=== PATIENT | male | born 1940 | race Caucasian/White ===

== ENCOUNTER 2023-04-02 08:02 | Outpatient (CLI) | payer MEDICARE, SELFPAY ==
[2023-04-02] VITALS (7 sets, daily range): BP systolic 115–140; BP diastolic 60–76; PULSE 69–105; RESP 12–22; TEMP 36.4; O2SAT 97–98
--- NOTE | 2023-04-02 08:45 | DI.RAD.S_ITS ---
PROCEDURE: PAIN L/S FACET INJ/BLK 1ST GARRET INDICATIONS: FACET ARTHROPATHY COMPARISON: None. FINDINGS: Fluoroscopic spot filming was performed to verify placement of spinal needles at the bilateral L4, L5 and S1 level(s), as labeled on the films. Appropriate location(s) of the needle tip(s) was confirmed by injection of iodinated contrast. IMPRESSION: Intra procedural examination demonstrating appropriate positions of the needles. Dictated by: Tra Lara M.D. on 04/02/2023 at 10:42 Approved by: Tra Lara M.D. on 04/02/2023 at 10:42
[2023-04-02] MEDS: MIDAZOLAM 2 MG/2 ML VIAL IV (09:22)
[2023-04-02] MEDS: iopamidoL 15 ML VIAL 3 ML INJ (09:25)
[2023-04-02] MEDS: LIDOCAINE 1% 20 ML 5 ML INJ (09:25)
[2023-04-02] MEDS: BUPIVACAINE 0.5% (PF) 10 ML VIAL 5 ML INJ (09:25)
--- NOTE | 2023-04-02 09:43 | PM.PROC.IR.1 ---
Date/Time/Diagnoses Date of procedure: 04/02/23 Time of procedure: 09:43 Pre-procedure diagnosis: 1. FACET ARTHROPATHY Post-procedure diagnosis: same Procedure Notes Procedure: 1. BILATERAL- L4, L5 and S1 DIAGNOSTIC MB BLOCKS with LA Anesthetic Indications: Wilber is referred by Dr. Szymanski for treatment of Bilateral Axial LBP. Physician: Jeronimo Hayes Total Fluoroscopy time (seconds): 14 Total sedation minutes: 17 Complications: none Procedure in detail & Post-procedure care: DESCRIPTION OF PROCEDURE Fluoroscopically guided, contrast-controlled bilateral L4, L5 and S1 medial branch blocks with 0.5cc of 0.5% Marcaine. Following review of allergy and review of potential side effects and complications, including, but not necessarily limited to, infection, allergic reaction, local tissue breakdown, nerve injury, paralysis, stroke and possible , the patient indicated that the patient understood and agreed to proceed. An informed consent document was signed by the patient, witnessed by a nurse, and placed in the patient's chart. After review of previous anaesthesic history and IV conscious sedation the patient was deemed safe to proceed with today's procedure with IV conscious sedation as ASA class II designation. Safety time-out was performed to confirm patient ID, procedure to be performed and site of procedure. IV sedation was accomplished with a combination of 2mg of Versed was administered by the RN after DO order, titrated to patient comfort during the course of the procedure while the patient remained responsive to all verbal commands In the prone position, following sterile prep and drape of the lumbar region, the right L4, L5 and S1 anatomical location of the medial branch of the dorsal ramus was identified fluoroscopically. Subsequently an anesthetic skin wheal using 1% lidocaine solution was initiated at each of the anatomical spots. Subsequently then a 22-gauge 3.5-inch spinal needle was atraumatically introduced and advanced under fluoroscopic guidance at each of the corresponding sites at the right L4, L5 and S1 MB. After negative aspiration, 0.2cc of Isovue 200 was injected, confirming placement without vascular or intrathecal uptake. Subsequently then 0.5cc of 0.5% Marcaine solution was injected at each of the corresponding sites at the right L4, L5 and S1 medial branch locations. The identical procedure was replicated on the left. The patient tolerated the procedure well without signs or symptoms of complications prior to transfer to the recovery area continued monitoring without incident. Post-procedure, the patient was monitored initiating provocative activities to measure the amount of relief from block of the facetogenic pain. The patient reported a VAS of 7 prior to the procedure and a post-procedure VAS of 1. It has been a pleasure to assist in the diagnostic and therapeutic care of your patient. POST OP INSTRUCTIONS The patient was provided with a Pain Log to complete over the next several hours and subsequent days prior to the patient's follow up with the ordering physician. If the patient has congressional assistant relief to the solution applied, then they may be a candidate for medial branch rhizotomy. The patient is aware, was provided, once again, with a Pain Log and will follow up with the referring physician for review and clinical correlation
== END 2023-04-02 09:57 | disposition home or self-care (01) ==
PROVIDERS: PCP Family Medicine; Referring Provider Physical Medicine & Rehabilitation; Visit Provider Physical Medicine & Rehabilitation
DX: M47.816 Spondylosis without myelopathy or radiculopathy, lumbar region (principal); M47.817 Spondylosis without myelopathy or radiculopathy, lumbosacral region
CPT/HCPCS: 64493; 64494; 99152; J2250

== ENCOUNTER 2023-06-02 09:34 | Outpatient (CLI) | payer MEDICARE, SELFPAY ==
[2023-06-02] VITALS (8 sets, daily range): BP systolic 133–166; BP diastolic 62–93; PULSE 91–126; RESP 16–19; TEMP 36.6; O2SAT 96–100
--- NOTE | 2023-06-02 10:15 | DI.RAD.S_ITS ---
PROCEDURE: PAIN L/S FACET INJ/BLK 1ST GARRET INDICATIONS: FACET ARTHOPATHY COMPARISON: [facility], , PAIN L/S FACET INJ/BLK 1ST GARRET, 04/02/2023, 10:26. FINDINGS: Fluoroscopic spot filming was performed to verify placement of spinal needles at the bilateral L4-5 and S1 level(s), as labeled on the films. Appropriate location(s) of the needle tip(s) was confirmed by injection of iodinated contrast. IMPRESSION: Bilateral L4-5 and S1 fluoroscopically guided injections. Dictated by: Tiffani Vizcaino M.D. on 06/02/2023 at 12:57 Approved by: Tiffani Vizcaino M.D. on 06/02/2023 at 12:57
--- NOTE | 2023-06-02 10:38 | PC.NURSE ---
Patient reports that 05/21 he has a right inguinal hernia repair done in [place]. Reports he got the ok from his surgeon to have injection. Denies any s/sx of infection.
[2023-06-02] MEDS: MIDAZOLAM 2 MG/2 ML VIAL IV (10:49)
[2023-06-02] MEDS: iopamidoL 15 ML VIAL 3 ML INJ (10:52)
[2023-06-02] MEDS: LIDOCAINE 1% 20 ML 5 ML INJ (10:53)
[2023-06-02] MEDS: LIDOCAINE 2% INJ SDV 5ML 10 ML INJ (10:54)
--- NOTE | 2023-06-02 11:08 | PM.PROC.IR.1 ---
Date/Time/Diagnoses Date of procedure: 06/02/23 Time of procedure: 11:08 Pre-procedure diagnosis: 1. FACET ARTHROPATHY Post-procedure diagnosis: same Procedure Notes Procedure: 1. BILATERAL- L4, L5 and S1 DIAGNOSTIC MB BLOCKS with SA Anesthetic Indications: Wilber is referred by Dr. Szymanski for treatment of Bilateral Axial LBP. Physician: Jeronimo Hayes Total Fluoroscopy time (seconds): 12 Total sedation minutes: 13 Complications: none Procedure in detail & Post-procedure care: DESCRIPTION OF PROCEDURE Fluoroscopically guided, contrast-controlled bilateral L4, L5 and S1 medial branch blocks with 0.5cc of 2% Lidocaine. Following review of allergy and review of potential side effects and complications, including, but not necessarily limited to, infection, allergic reaction, local tissue breakdown, nerve injury, paralysis, stroke and possible , the patient indicated that the patient understood and agreed to proceed. An informed consent document was signed by the patient, witnessed by a nurse, and placed in the patient's chart. After review of previous anaesthesic history and IV conscious sedation the patient was deemed safe to proceed with today's procedure with IV conscious sedation as ASA class II designation. Safety time-out was performed to confirm patient ID, procedure to be performed and site of procedure. IV sedation was accomplished with a combination of 2mg of Versed was administered by the RN after DO order, titrated to patient comfort during the course of the procedure while the patient remained responsive to all verbal commands In the prone position, following sterile prep and drape of the lumbar region, the right L4, L5 and S1 anatomical location of the medial branch of the dorsal ramus was identified fluoroscopically. Subsequently an anesthetic skin wheal using 1% lidocaine solution was initiated at each of the anatomical spots. Subsequently then a 22-gauge 3.5-inch spinal needle was atraumatically introduced and advanced under fluoroscopic guidance at each of the corresponding sites at the right L4, L5 and S1 MB. After negative aspiration, 0.2cc of Isovue 200 was injected, confirming placement without vascular or intrathecal uptake. Subsequently then 0.5cc of 2% Lidocaine solution was injected at each of the corresponding sites at the right L4, L5 and S1 medial branch locations. The identical procedure was replicated on the left. The patient tolerated the procedure well without signs or symptoms of complications prior to transfer to the recovery area continued monitoring without incident. Post-procedure, the patient was monitored initiating provocative activities to measure the amount of relief from block of the facetogenic pain. The patient reported a VAS of 7 prior to the procedure and a post-procedure VAS of 1. It has been a pleasure to assist in the diagnostic and therapeutic care of your patient. POST OP INSTRUCTIONS The patient was provided with a Pain Log to complete over the next several hours and subsequent days prior to the patient's follow up with the ordering physician. If the patient has hydraulic press tender relief to the solution applied, then they may be a candidate for medial branch rhizotomy. The patient is aware, was provided, once again, with a Pain Log and will follow up with the referring physician for review and clinical correlation
--- NOTE | 2023-06-02 11:40 | PC.NURSE ---
Patient has hx of afib, reports he did not take his Diltiazem 300mg ER this morning last dose was 06/01/23 in AM. Heart rate 120-130's afib, non sustaining in 140's. Patient denies any heart palpations, SOB, chest discomfort or h/a. Patient and son instructed that he needs to go home and take his morning dose of diltiazem. He was also instructed that he does not need to hold this medication for his procedure and that he needs to take it as directed. Patient instructed if he starts to have any chest palpations, chest pain, SOB and h/a to be seen in ER. Dr Hayes aware of heart rate and ok to d/c home. At d/c patient was steady on feet, denies any dizziness or lightheaded with ambulation.
== END 2023-06-02 11:30 | disposition home or self-care (01) ==
LOC: RAD 09:35
PROVIDERS: PCP Family Medicine; Referring Provider Physical Medicine & Rehabilitation; Visit Provider Physical Medicine & Rehabilitation
DX: M47.816 Spondylosis without myelopathy or radiculopathy, lumbar region (principal); M47.817 Spondylosis without myelopathy or radiculopathy, lumbosacral region
CPT/HCPCS: 64493; 64494; 99152; J2250

== ENCOUNTER 2023-08-04 07:09 | Outpatient (CLI) | payer MEDICARE, SELFPAY ==
[2023-08-04] VITALS (15 sets, daily range): BP systolic 99–146; BP diastolic 53–89; PULSE 88–114; RESP 12–25; TEMP 36.9; O2SAT 96–99
--- NOTE | 2023-08-04 08:00 | DI.RAD.S_ITS ---
PROCEDURE: PAIN L/S MED/LAT N RFA BILAT INDICATIONS: Bilateral L4, L5 and S1 medial branch RFA COMPARISON: None. FINDINGS: Fluoroscopic spot filming was performed to verify placement of spinal needles at the bilateral L4, L5 and S1 level(s), as labeled on the films. Appropriate location(s) of the needle tip(s) was confirmed by injection of iodinated contrast. IMPRESSION: Fluoroscopic guidance utilized for a bilateral medial branch RFA. Dictated by: Cedric Giang M.D. on 08/04/2023 at 10:51 Approved by: Cedric Giang M.D. on 08/04/2023 at 10:51
[2023-08-04] MEDS: MIDAZOLAM 2 MG/2 ML VIAL 1 MG IV ×2 (08:15→08:39)
[2023-08-04] MEDS: BUPIVACAINE 0.5% (PF) 10 ML VIAL 5 ML INJ (08:23)
[2023-08-04] MEDS: LIDOCAINE 1% 20 ML 5 ML INJ (08:23)
[2023-08-04] MEDS: MIDAZOLAM 5 MG/ML VIAL 1 MG IV (08:25)
--- NOTE | 2023-08-04 09:04 | P.PCN_ITS ---
Date/Time/Diagnoses Date of procedure: 08/04/23 Time of procedure: 09:04 Pre-procedure diagnosis: 1. RECALCITRANT FACET ARTHROPATHY Post-procedure diagnosis: same Procedure Notes Procedure: 1. BILATERAL L4 AND L5 MEDIAL BRANCH RADIOFREQUENCY NEUROTOMY AND S1 DORSAL RAMUS BRANCH RADIOFREQUENCY NEUROTOMY Indications: Wilber is referred by Dr. Szymanski for treatment of facet arthropathy. Physician: Jeronimo Hayes Total Fluoroscopy time (seconds): 19 Total sedation minutes: 39 Complications: none Procedure in detail & Post-procedure care: DESCRIPTION OF PROCEDURE Bilateral L4 and L5 medial branch radiofrequency neurotomy and bilateral S1 dorsal ramus radiofrequency neurotomy under fluoroscopy with conscious sedation. The patient is well known to this clinic having undergone previous facet injections with good but temporary relief. The patient has experienced appropriate, concordant relief with previous facet and median branch blocks but the patient's pain has been recalcitrant to further conservative measures. Therefore, based upon the patient's relief and persistent symptoms, the patient is considered an appropriate candidate for facet rhizotomy. All of the patient's questions regarding the risks versus benefits of the procedure, including, but not limited to, bleeding, infection, temporary as well as lasting nerve injury, paralysis, stroke, and , as well treatment alternatives were answered to satisfaction. After obtaining informed consent, denial of pertinent drug allergies, as well as being made aware of the potential risks of bleeding, infection, spinal cord trauma, paralysis, temporary and permanent nerve damage, seizure, stroke, and possible , the patient was brought to the fluoroscopy suite and positioned prone on the fluoroscopy table. The lumbar region was prepped in usual sterile fashion and covered with a fenestrated drape in the usual sterile fashion. Appropriate monitors applied including pulse oximeter, pulse, and blood pressure for regular monitoring throughout the procedure. After review of previous anaesthesic history and IV conscious sedation the patient was deemed safe to proceed with today's procedure with IV conscious sedation as ASA class II designation. Safety time-out was performed to confirm patient ID, procedure to be performed and site of procedure. IV sedation was accomplished with a combination of 3mg of Versed administered by the RN after DO order, titrated to patient comfort during the course of the procedure while the patient remained responsive to all verbal commands. After local infiltration using 1% lidocaine, under fluoroscopic guidance, a 10- cm RF insulated needle with a 10-mm active tip was positioned parallel to the junction of the right sacral ala and the superior articulating process where the S1 dorsal ramus resides. Needle placement was confirmed with motor stimulation of .5v on the right which produced local stimulation without radicular component. The stimulation was then increased to 2v with, once again, only local multifidus stimulation without radicular component. The needle was then removed and the identical procedure was performed along the length of the right L5 medial branch with motor stimulation at .7v on the right. The identical procedure was once again performed along the length of the right L4 medial branch with motor stimulation of .5v on the right. The medial branches were then anesthetised with 0.5% Marcaine. This was then followed by two discreet lesions performed at 80 degrees Celsius for 90 seconds each. The identical procedure was repeated on the left. The patient tolerated the procedure well without signs or symptoms of complications prior to transfer to the recovery area continued monitoring without incident. The patient was then transferred to the recovery area where they were observed for an appropriate period of time after the injection. The patient reported a VAS score of 9 prior to the procedure and a post-procedure VAS of 0. POST OP INSTRUCTIONS The patient was provided a Pain Log to continue to record the patient's response to the target-specific procedure prior to the patient's follow-up visit with the referring physician. Additionally, specific post-injection care instructions and a contact number to our office were provided if concerns arise regarding possible complications associated with the procedure are suspected.
== END 2023-08-04 09:40 | disposition home or self-care (01) ==
LOC: RAD 07:10
PROVIDERS: PCP Family Medicine; Referring Provider Physical Medicine & Rehabilitation; Visit Provider Physical Medicine & Rehabilitation
DX: M47.816 Spondylosis without myelopathy or radiculopathy, lumbar region (principal); M47.817 Spondylosis without myelopathy or radiculopathy, lumbosacral region
CPT/HCPCS: 64635; 64636; 99152; 99153; J2250

== ENCOUNTER → 2024-03-23 12:52 | Outpatient (CLI) | payer MEDICARE, SELFPAY ==
--- NOTE | 2024-03-23 12:55 | DI.RAD.S_ITS ---
PROCEDURE: XR LUMBAR SPINE MIN 4V INDICATIONS: BACK PAIN TECHNIQUE: 5 views of the lumbar spine were acquired, including bilateral oblique views. COMPARISON: [facility], RG, XR L-SPINE 2-3V, 12/18/2022, 10:08. FINDINGS: Bones: Generalized decreased osseous mineralization noted. Since the prior exam, L2 compression fracture has been treated with vertebroplasty. Vertebroplasty at T12 and L1 remains unchanged. Prior L3 and L4 compression fracture is also stable. Diffuse disc space narrowing hypertrophic facet joints. No new fracture. Soft tissues: Overlying bowel gas pattern is normal. No suspicious soft tissue calcifications. Atherosclerotic calcification in the abdominal aorta noted without evidence of aneurysm. Oblique images: No pars defects. IMPRESSION: Osteopenia without new compression fracture. Stable degenerative disc disease and arthropathy. Stable multilevel vertebroplasty and compression fractures Approved by: Adan Molina M.D. on 03/23/2024 at 13:41
== END ==
PROVIDERS: PCP Family Medicine; Referring Provider Physical Medicine & Rehabilitation; Visit Provider Physical Medicine & Rehabilitation
DX: M48.062 Spinal stenosis, lumbar region with neurogenic claudication (principal); M47.816 Spondylosis without myelopathy or radiculopathy, lumbar region; M51.369 Other intervertebral disc degeneration, lumbar region without mention of lumbar back pain or lower extremity pain; M81.0 Age-related osteoporosis without current pathological fracture; I70.0 Atherosclerosis of aorta; S32.030S Wedge compression fracture of third lumbar vertebra, sequela; S32.020S Wedge compression fracture of second lumbar vertebra, sequela; S32.010S Wedge compression fracture of first lumbar vertebra, sequela; S22.080S Wedge compression fracture of T11-T12 vertebra, sequela; Z79.01 Long term (current) use of anticoagulants; Z86.79 Personal history of other diseases of the circulatory system
CPT/HCPCS: 72110; 99214

== ENCOUNTER 2024-04-14 14:20 | Outpatient (CLI) | payer MEDICARE, SELFPAY ==
[2024-04-14] VITALS (10 sets, daily range): BP systolic 118–151; BP diastolic 64–90; PULSE 10–98; RESP 14–20; TEMP 36.7; O2SAT 96–100
--- NOTE | 2024-04-14 14:46 | DI.RAD.S_ITS ---
PROCEDURE: PAIN L/S TRANSFORAM INJECT GARRET COMPARISON: [facility], CR, XR LUMBAR SPINE MIN 4V, 03/23/2024, 13:08. INDICATIONS: Bilateral L3/4 TFESI FINDINGS/IMPRESSION: Fluoroscopic spot filming was performed to verify placement of spinal needles at the bilateral L3-4 levels, as labeled on the films. Appropriate locations of the needle tips were confirmed by injection of iodinated contrast. Vertebroplasty changes are noted. Approved by: Vahe Dooley M.D. on 04/15/2024 at 15:57
[2024-04-14] MEDS: MIDAZOLAM 2 MG/2 ML VIAL IV (15:34)
[2024-04-14] MEDS: BETAMETHASONE 30 MG/5 ML MDV 12 MG INJ (15:38)
[2024-04-14] MEDS: iopamidoL 15 ML VIAL 3 ML INJ (15:38)
[2024-04-14] MEDS: BUPIVACAINE 0.25% (PF) VIAL 2 ML INJ (15:38)
[2024-04-14] MEDS: DEXAMETHASONE 10 MG/ML VIAL 20 MG INJ (15:39)
[2024-04-14] MEDS: BETAMETHASONE 30 MG/5 ML MDV 6 MG INJ (15:39)
--- NOTE | 2024-04-14 16:01 | PM.PROC.IR.1 ---
Date/Time/Diagnoses Date of procedure: 04/14/24 Time of procedure: 16:01 Pre-procedure diagnosis: 1. FORAMINAL STENOSIS WITH LE SYMPTOMS Post-procedure diagnosis: same Procedure Notes Procedure: 1. FLUOROSCOPICALLY GUIDED CONTRAST CONTROLLED TRANSFORAMINAL EPIDURAL STEROID INJECTION - BILATERAL L3/4 TFESI Indications: Wilber is referred by Dr. Szymanski for treatment of Foraminal Stenosis with bilateral LE Symptoms Physician: Jeronimo Hayes Total Fluoroscopy time (seconds): 19 Total sedation minutes: 20 Complications: none Procedure in detail & Post-procedure care: FINDINGS Foraminal Nerve Root Compression secondary to disc disease and facet hypertrophy DESCRIPTION OF PROCEDURE Following review of allergy and review of potential side effects and complications, including, but not necessarily limited to, infection, allergic reaction, local tissue breakdown, stroke, temporary or permanent nerve injury, paralysis, and possible , the patient indicated that the patient understood and agreed to proceed. An informed consent document was signed by the patient, witnessed by a nurse, and placed in the patient's chart. Additionally, other treatment options including medications, modalities, and physical therapy were reviewed with the patient. After review of previous anaesthesic history and IV conscious sedation the patient was deemed safe to proceed with today?s procedure with IV conscious sedation as ASA class II designation. Safety time-out was performed to confirm patient ID, procedure to be performed and site of procedure. IV sedation was accomplished with a combination of 2mg of Versed was administered by the RN after DO order, titrated to patient comfort during the course of the procedure while the patient remained responsive to all verbal commands In the prone position following sterile prep and drape of the lumbar region, the right L3/4 posterior neuroforamen was identified fluoroscopically. The skin was anesthetized via a 25-gauge 1.5-inch needle with 1% lidocaine solution. At this point, a 25-gauge 3.5-inch spinal needle was atraumatically introduced and advanced under fluoroscopic guidance through the posterior right L3/4 neuroforamen to approximately the anterior aspect of the canal. Depth was confirmed on lateral view. Following negative aspiration, injection of approximately 1.5cc of Isovue 200 under live fluoroscopy in the AP view confirmed excellent flow along the nerve root, into the epidural space without vascular or intrathecal uptake observed Radiological data, including multiple fluoroscopic views of the lumbosacral spine, reveal a spinal needle at the right L3/4 posterior neuroforamen. Subsequent views show flow of contrast material flowing superiorly and inferiorly along the nerve root confirming epidural flow. Subsequently, a test dose of 1.5cc of 1% lidocaine solution was administered and patient was observed for two minutes for signs or symptoms of complications, including abdominal pain, shortness of breath, bilateral upper or lower extremity weakness, nausea and vomiting, prior to steroid injection. At this point, a total of 2cc or 10mg of dexamethasone and 6mg betamethasone was injected without incident. Attention was then refocused to the left L3/4 level where the identical procedure was replicated. The procedure tolerated the procedure well without signs or symptoms of complications prior to transfer to the recovery area continued monitoring without incident. The patient was then transferred to the recovery area where they were observed for an appropriate time after the injection. The patient reported a VAS score of 7 prior to the procedure and a post-procedure VAS of 0. POST OP INSTRUCTIONS The patient was provided a Pain Log to continue to record their response to the target-specific procedure prior to follow-up visit with their referring physician. Additionally, specific post-injection care instructions and a contact number to our office were provided if concerns arise regarding possible complications associated with the procedure are suspected.
== END 2024-04-14 16:44 | disposition home or self-care (01) ==
LOC: RAD 14:21
PROVIDERS: PCP Family Medicine; Referring Provider Physical Medicine & Rehabilitation; Visit Provider Physical Medicine & Rehabilitation
DX: M48.061 Spinal stenosis, lumbar region without neurogenic claudication (principal); M51.16 Intervertebral disc disorders with radiculopathy, lumbar region; M47.26 Other spondylosis with radiculopathy, lumbar region
CPT/HCPCS: 64483; 99152; J0702; J1100; J2250; J3490

== ENCOUNTER 2024-07-19 12:04 | Outpatient (CLI) | payer MEDICARE, SELFPAY ==
[2024-07-19] VITALS (10 sets, daily range): BP systolic 120–164; BP diastolic 68–98; PULSE 81–98; RESP 14–16; TEMP 36.4; O2SAT 97–100
[2024-07-19] MEDS: MIDAZOLAM 2 MG/2 ML VIAL IV (13:33)
[2024-07-19] MEDS: DEXAMETHASONE 10 MG/ML VIAL INJ (13:39)
[2024-07-19] MEDS: BETAMETHASONE 30 MG/5 ML MDV 12 MG INJ (13:40)
[2024-07-19] MEDS: iopamidoL 15 ML VIAL 3 ML INJ (13:40)
[2024-07-19] MEDS: BETAMETHASONE 30 MG/5 ML MDV 6 MG INJ (13:49)
--- NOTE | 2024-07-19 13:54 | P.PCN_ITS ---
Date/Time/Diagnoses Date of procedure: 07/19/24 Time of procedure: 13:54 Pre-procedure diagnosis: 1. HNP WITH RADICULAR FEATURES, 2. MULTILEVEL CENTRAL STENOSIS, Post-procedure diagnosis: same Procedure Notes Procedure: 1. FLUOROSCOPICALLY GUIDED CONTRAST CONTROLLED INTERLAMINAR EPIDURAL STEROID INJECTION - L3/4 Indications: Martell is referred by Dr. Szymanski for treatment of Bilateral Foraminal Stenosis L>R LE symptoms. Physician: Jeronimo Hayes Total Fluoroscopy time (seconds): 11 Total sedation minutes: 16 Complications: none Procedure in detail & Post-procedure care: FINDINGS Multilevel Central Spinal Stenosis with Nerve Root Compression DESCRIPTION OF PROCEDURE Fluoroscopically guided, contrast-controlled L3/4 translaminar epidural steroid injection. Following review of allergy and review of potential side effects and complications, including, but not necessarily limited to, infection, allergic reaction, local tissue breakdown, temporary as well as permanent nerve injury, paralysis, stroke and possible , the patient indicated that the patient understood and agreed to proceed. An informed consent document was signed by the patient, witnessed by a nurse, and placed in the patient's chart. Additionally, other treatment options including modalities, medications, and physical therapy were reviewed with the patient. After review of previous anaesthesic history and IV conscious sedation the patient was deemed safe to proceed with today?s procedure with IV conscious sedation as ASA class II designation. Safety time-out was performed to confirm p atient ID, procedure to be performed and site of procedure. IV sedation was accomplished with a combination of 2mg of Versed was administered by the RN after DO order, titrated to patient comfort during the course of the procedure while the patient remained responsive to all verbal commands. In the prone position, following sterile prep and drape of the lumbar region, the L3/4 translaminar space was identified fluoroscopically. The skin was anesthetized via a 25-gauge, 1.5-inch needle with 1% lidocaine solution. At this point, a 22-gauge short bevel spinal needle was atraumatically introduced and advanced under fluoroscopic guidance into the region of the L3/4 translaminar space. Depth was confirmed on lateral view. Radiological data, including multiple fluoroscopic views of the lumbar spine, reveal a spinal needle at the L3/4 translaminar space. Lateral views then show placement of the needle in the epidural space. Subsequent views show contrast material flowing superiorly and inferiorly in the epidural space. No vascular or intrathecal uptake is observed. At this point, using loss of resistance technique with saline and air, the epidural space was entered. This was confirmed following negative aspiration with injection of approximately 1.5 cc of Isovue 200, showing excellent epidural flow without vascular or intrathecal uptake. At this point, 1cc of 1% lidocaine solution combined with 2cc or 10mg of dexamethasone and 6mg of betamethasone was injected without incident. The patient tolerated the procedure well without signs or symptoms of complications prior to transfer to the recovery area continued monitoring without incident. The patient was then transferred to the recovery area where they were observed for an appropriate period of time after the injection. The patient reported a VAS score of 6 prior to the procedure and a post- procedure VAS of 0. POST OP INSTRUCTIONS The patient was provided a Pain Log to continue to record their response to the target-specific procedure prior to follow-up visit with their referring physician. Additionally, specific post-injection care instructions and a contact number to our office were provided if concerns arise regarding possible complications associated with the procedure are suspected.
== END 2024-07-19 14:20 | disposition home or self-care (01) ==
PROVIDERS: PCP Family Medicine; Referring Provider Physical Medicine & Rehabilitation; Visit Provider Physical Medicine & Rehabilitation
DX: M51.16 Intervertebral disc disorders with radiculopathy, lumbar region (principal); M48.061 Spinal stenosis, lumbar region without neurogenic claudication; S32.030A Wedge compression fracture of third lumbar vertebra, initial encounter for closed fracture
CPT/HCPCS: 62323; 99152; J0702; J1100; J2250